=== PATIENT | female | born 1990 | race Two or more races ===

== ENCOUNTER 2016-05-17 03:14 | Emergency (ER) | payer BC ==
[2016-05-17 00:01] LABS: BASOPHIL# 0.1 X10e3 (0-0.3); BASOPHIL% 0.9 % (0-2.5); EOSINOPHIL% 0.6 % (0.0-7.0); HEMATOCRIT 36.2 % (35.0-45.0); HEMOGLOBIN 11.7 gm/dL (12.0-16.0); LYMPHOCYTE# 1.9 X10e3 (1.0-3.5); LYMPHOCYTE% 28.5 % (17.0-45.0); MEAN CELL VOLUME 88.3 FL (83-96); MEAN CORPUSCULAR HEMOGLOBIN 28.6 PG (28-34); MEAN CORPUSCULAR HGB CONC 32.3 g/dL (30-36); MEAN PLATELET VOLUME 8.4 FL (6.5-11.5); MONOCYTE# 0.6 X10e3 (0-1.0); MONOCYTE% 9.4 % (3.0-12.0); NEUTROPHIL# 4.1 X10e3 (1.5-7.1); NEUTROPHIL% 60.6 % (40-75); PLATELET COUNT 314 X10e3 (140-420); RED CELL DISTRIBUTION WIDTH 18.6 % (11.0-15.5); WHITE BLOOD COUNT 6.8 X10e3 (4.0-10.5)
[2016-05-17 00:03] LABS: DIFF IND NO
[2016-05-17 00:29] LABS: ALBUMIN SERUM 4.2 g/dL (3.5-5.0); ALKALINE PHOSPHATASE 50 U/L (32-92); ALT (SGPT) 18 U/L (10-40); AST (SGOT) 25 U/L (10-42); BILIRUBIN, DIRECT 0.1 mg/dL (0.0-0.2); BILIRUBIN,INDIRECT 0.5 mg/dL (0.0-0.9); BILIRUBIN,TOTAL 0.6 mg/dL (0.2-2.0); BLOOD UREA NITROGEN 9 mg/dL (9-23); CARBON DIOXIDE 24 mmol/L (22-31); CHLORIDE 102 mmol/L (100-111); CREATININE SERUM 0.5 mg/dL (0.6-1.4); GLOM FILT RATE Estimated ABOVE60 mL/min (>60); GLUCOSE FASTING 103 mg/dL (70-110); LIPASE 35 U/L (22-51); POTASSIUM 3.7 mmol/L (3.5-5.1); PROTEIN TOTAL SERUM 7.7 g/dL (6.0-8.3); SODIUM 136 mmol/L (135-145)
== END 2016-05-17 03:42 | disposition home or self-care (01) ==
LOC: CED 03:14
PROVIDERS: Emergency Medicine
DX: R10.13 Epigastric pain (principal); R11.2 Nausea with vomiting, unspecified
CPT/HCPCS: 36415; 80048; 80076; 83690; 84703; 85025; 99284